=== PATIENT | male | born 1945 | race Two or more races ===

== ENCOUNTER → 2017-11-21 | Outpatient (CLI) | payer OTHER | END | disposition home or self-care (01) | LOC: RAD 10:03 | DX: M48.07 Spinal stenosis, lumbosacral region (principal); M17.0 Bilateral primary osteoarthritis of knee | CPT/HCPCS: 72100; 73562 ==

== ENCOUNTER → 2017-11-27 | Day surgery (SDC) | payer OTHER ==
[~2017-11-27] MED LIST: LIDOCAINE 1% PF 2 ML VIAL. ID; LIDOCAINE 2% PF Vial for OR 5 ML VIAL.; MIDAZOLAM HCL/PF 2 MG/2 ML VIAL. IV; PROPOFOL 20 ML IV; fentaNYL PF VIAL 100 MCG/2 ML VIAL IV
[2017-11-27] MEDS: IV RINGERS,LACTATED 1000ML 1,000 ML IV (11:44)
[2017-11-27 11:49] LABS: POC GLUCOSE 130 mg/dL (70-99)
== END | disposition home or self-care (01) ==
LOC: SURG 11:12
DX: Z12.11 Encounter for screening for malignant neoplasm of colon (principal); E11.9 Type 2 diabetes mellitus without complications; I10 Essential (primary) hypertension; E78.00 Pure hypercholesterolemia, unspecified; Z98.890 Other specified postprocedural states; Z79.84 Long term (current) use of oral hypoglycemic drugs; Z79.899 Other long term (current) drug therapy; G89.29 Other chronic pain
CPT/HCPCS: 45378; 82962; J2001; J2704